=== PATIENT | female | born 1950 | race Native Hawaiian/Other Pacific Islander ===

== ENCOUNTER 2018-04-23 08:55 | Outpatient (CLI) | payer OTHER | END 2018-04-23 19:37 | disposition home or self-care (01) | LOC: MAMMO 08:55 | DX: Z12.31 Encounter for screening mammogram for malignant neoplasm of breast (principal) ==

== ENCOUNTER 2018-05-23 09:58 | Outpatient (CLI) | payer OTHER | END 2018-05-23 21:41 | disposition home or self-care (01) | LOC: MAMMO 09:58 | DX: R92.8 Other abnormal and inconclusive findings on diagnostic imaging of breast (principal) ==

== ENCOUNTER 2018-11-20 09:52 | Outpatient (CLI) | payer OTHER | END 2018-11-20 22:55 | disposition home or self-care (01) | LOC: MAMMO 09:52 | DX: R92.8 Other abnormal and inconclusive findings on diagnostic imaging of breast (principal) ==

== ENCOUNTER 2019-06-10 09:20 | Outpatient (CLI) | payer OTHER | END 2019-06-10 19:25 | disposition home or self-care (01) | LOC: MAMMO 09:20 | DX: Z12.31 Encounter for screening mammogram for malignant neoplasm of breast (principal) ==

== ENCOUNTER 2019-06-25 08:58 | Outpatient (CLI) | payer OTHER | END 2019-06-25 22:21 | disposition home or self-care (01) | LOC: MAMMO 08:58 | DX: R92.8 Other abnormal and inconclusive findings on diagnostic imaging of breast (principal) ==

== ENCOUNTER 2019-12-08 10:00 | Outpatient (CLI) | payer OTHER | END 2019-12-08 20:28 | disposition home or self-care (01) | LOC: RAD 10:00 | DX: U07.1 COVID-19 (principal) ==

== ENCOUNTER 2019-12-18 09:03 | Outpatient (CLI) | payer OTHER | END 2019-12-18 20:19 | disposition home or self-care (01) | LOC: MAMMO 09:03 | DX: R92.8 Other abnormal and inconclusive findings on diagnostic imaging of breast (principal) | CPT/HCPCS: G0279 ==